=== PATIENT | female | born 1970 | race African-American/Black ===

== ENCOUNTER 2021-10-24 09:49 | Outpatient (CLI) | payer SELFPAY ==
[2021-10-24 13:01] LABS: Chol/HDL Ratio 5.48 %
== END 2021-10-24 09:50 | disposition home or self-care (01) ==
LOC: LABHHL 09:49
PROVIDERS: ATTEND Internal Medicine
DX: R73.03 Prediabetes (principal); E78.5 Hyperlipidemia, unspecified
CPT/HCPCS: 36415; 80061; 83036